=== PATIENT | female | born 1980 | race Caucasian/White ===

== ENCOUNTER 2024-09-08 11:50 | Outpatient (CLI) | payer BC, SELFPAY ==
--- NOTE | ~2024-09-08 | XR_ITS ---
Lumbosacral Spine: AP and lateral views Clinical History: Pain Findings: The normal lordotic curve is maintained. The vertebral bodies and posterior elements are i ntact. The intervertebral disc spaces are preserved. The sacroiliac joints are normally outlined. Impression: No significant abnormality. Reviewed, dictated and finalized at [facility]. [employer] Impression: No significant abnormality.
== END 2024-09-08 11:51 | disposition home or self-care (01) ==
DX: M54.16 Radiculopathy, lumbar region (principal)
CPT/HCPCS: 72100

== ENCOUNTER 2024-09-17 12:48 | Outpatient (CLI) | payer BC, SELFPAY | END 2024-09-17 12:49 | disposition home or self-care (01) | LOC: MICIMG 13:01 | DX: M43.06 Spondylolysis, lumbar region (principal); M51.27 Other intervertebral disc displacement, lumbosacral region | CPT/HCPCS: 72148 ==